=== PATIENT | female | born 1985 | race Two or more races ===

== ENCOUNTER 2017-09-26 14:37 | Emergency (ER) | payer SELFPAY ==
[~2017-09-26] VITALS: Ht 165.1 cm; Wt 70.3 kg
[2017-09-26 14:44] VITALS: Ht 165.1 cm; Wt 70.3 kg
[2017-09-26 15:09] LABS: CALCIUM 8.8 mg/dL (8.5-10.1); CARBON DIOXIDE 28.9 mmol/L (21-32); CHLORIDE SERUM 104 mmol/L (98-107); CREATININE SERUM 0.7 mg/dL (0.6-1.0); GFR1 > 60 mL/min; GLUCOSE SERUM 102 mg/dL (74-106); POTASSIUM SERUM 3.5 mmol/L (3.5-5.1); SODIUM SERUM 141 mmol/L (136-145)
[2017-09-26 15:11] LABS: BASOPHIL % 0.4 % (0-2); PLATELET COUNT 292 x10^3mcL (130-400)
[2017-09-26 15:12] LABS: RED CELL DISTRIBUTION WIDTH 14.9 % (11.5-14.5)
[2017-09-26 15:15] LABS: ALBUMIN 3.7 g/dL (3.4-5.0); ALKALINE PHOSPHATASE 117 U/L (46-116); ALT/SGPT 22 U/L (14-59); AST/SGOT 21 U/L (15-37); BILIRUBIN TOTAL 0.29 mg/dL (0.20-1.00); TOTAL PROTEIN, SERUM 7.2 g/dL (6.4-8.2)
[2017-09-26 15:57] LABS: FREE T4 0.83 ng/dL (0.76-1.46); FREE THYROXINE INDEX 1.8 ug/dL (1.4-4.5); T4(THYROXINE) 5.9 ug/dL (4.7-13.3)
[2017-09-26 15:58] LABS: T3 TOTAL 1.12 ng/mL
[2017-09-26 16:44] LABS: AMPHETAMINE QUAL UR NONE DETECTED (See below)
[2017-09-26 17:38] VITALS: BP 113/72
== END 2017-09-26 17:36 | disposition home or self-care (01) ==
LOC: ED 14:37
PROVIDERS: Specialist
DX: I47.1 Supraventricular tachycardia (principal)
CPT/HCPCS: 36415; 83880; 84439

== ENCOUNTER 2018-08-23 10:32 | Emergency (ER) | payer MEDICAID ==
[~2018-08-23] VITALS: Ht 165.1 cm; Wt 99.3 kg
[2018-08-23 10:35] VITALS: BP 110/74; Ht 165.1 cm; Wt 99.3 kg
== END 2018-08-23 11:45 | disposition home or self-care (01) ==
LOC: ED 10:32
DX: S92.351A Displaced fracture of fifth metatarsal bone, right foot, initial encounter for closed fracture (principal); X50.1XXA Overexertion from prolonged static or awkward postures, initial encounter; Y93.89 Activity, other specified; Y92.89 Other specified places as the place of occurrence of the external cause; Y99.8 Other external cause status
CPT/HCPCS: Q0092